=== PATIENT | female | born 1950 | race Caucasian/White ===

== ENCOUNTER 2022-12-15 11:33 | Outpatient (AMB) | payer MEDICARE, SELFPAY ==
--- NOTE | 2022-12-15 11:56 | MHC.OFFWIV ---
Intake Vital Signs 12/15/22 12:12 Weight 132 lb BP 130/62 Blood Pressure Location Rt brachial Position Sitting Pulse 62 Pulse Source Pulse Oximeter Temp 98.0 F Temp Source Temporal Artery Scan Pulse Oximetry (%) 98 Intake Visit Reasons: [employer] ?Finger infection Intake Note: pt is here for c/o finger infection, right middle finger nail, cuticle red Patient Tobacco Use Status: Never used Tobacco Allergies No Known Allergies Allergy (Verified 12/15/22 12:37) Medication List - Last Reconciled 12/15/22 by Franklyn Garner MD amlodipine 10 mg PO DAILY levothyroxine 100 mcg PO DAILY losartan 100 mg PO DAILY Do you need a note to return to daycare/school/sports/work: No HPI [employer] ?Finger infection HPI Details [age] year old female presents to the office for a sick visit. Patient has a swelling and pain in the right hand 3rd digit. Symptoms started after a piece of rock scratched her. PFSH Social History Patient Tobacco Use Status: Never used Tobacco Physical Exam Vital Signs: Last Vital Signs Temp 98.0 F 12/15/22 12:12 Pulse 62 12/15/22 12:12 BP 130/62 12/15/22 12:12 Pulse Ox 98 12/15/22 12:12 Extrem Other: Right hand: 3rd digit: Swelling at the pulp space and along the cuticle edge of the nail. Tender to touch. Assessment & Plan Assessment & Plan (1) Paronychia of right middle finger: Code(s): L03.011 - Cellulitis of right finger Plan: Antibiotics called in. Anti-inflammatories to be taken. If symptoms do not improve to follow-up here. Coding Level of Care Code New Pt Level 3 (94960) Diagnoses Paronychia of right middle finger L03.011
[2022-12-15 12:12] VITALS: BP 130/62; PULSE 62; TEMP 36.7; O2SAT 98
== END 2022-12-15 12:52 | disposition home or self-care (01) ==
PROVIDERS: PCP Internal Medicine; Visit Provider Internal Medicine
DX: L03.011 Cellulitis of right finger (principal)
CPT/HCPCS: 99203

== ENCOUNTER 2023-03-20 11:07 | Outpatient (AMB) | payer MEDICARE, SELFPAY ==
--- NOTE | 2023-03-20 13:02 | MHC.OFFWIV ---
Intake Vital Signs 03/20/23 13:05 Weight 136 lb BP 120/60 Blood Pressure Location Lt brachial Position Sitting Pulse 66 Pulse Source Pulse Oximeter Temp 97.4 F Temp Source Temporal Artery Scan Pulse Oximetry (%) 97 Oxygen Delivery Method Room Air Intake Visit Reasons: EP, congestion, cough (masked) Intake Note: pt is here today for congestion cough started thursday Patient Tobacco Use Status: Never used Tobacco Allergies No Known Allergies Allergy (Verified 03/20/23 13:34) Medication List - Last Reconciled 03/20/23 by Franklyn Garner MD amlodipine 10 mg PO DAILY cephalexin 500 mg PO BID levothyroxine 100 mcg PO DAILY losartan 100 mg PO DAILY Do you need a note to return to daycare/school/sports/work: No HPI EP, congestion, cough (masked) HPI Details Patient presents for a sick visit. Reporting symptoms of sinus congestion, sore throat and difficulty swallowing. Low-grade fever. No family member is sick. No recent travel. Patient reports symptoms of malaise and fatigue. PFSH Social History Patient Tobacco Use Status: Never used Tobacco Physical Exam Vital Signs: Last Vital Signs Temp 97.4 F 03/20/23 13:05 Pulse 66 03/20/23 13:05 BP 120/60 03/20/23 13:05 Pulse Ox 97 03/20/23 13:05 Oxygen Delivery Method Room Air 03/20/23 13:05 Const General: cooperative and healthy appearing Nutritional Appearance: well nourished Orientation/consciousness: patient oriented x3 Limitations: no limitations HEENT Head: Yes normal to inspection Eyes General: appearance normal, both eyes and all related structures Neck Neck: Yes normal visual inspection Chest Chest palpation & inspection: normal palpation of entire chest wall Resp Effort & Inspection: normal respiratory effort Neuro General: patient oriented x3 Assessment & Plan Assessment & Plan (1) Upper respiratory tract infection: Code(s): J06.9 - Acute upper respiratory infection, unspecified Plan: Viral illness. No antibiotics needed. Fence to not improved to follow-up here. Coding Level of Care Code Est Pt Level 3 (94446) Diagnoses Upper respiratory tract infection J06.9
[2023-03-20 13:05] VITALS: BP 120/60; PULSE 66; TEMP 36.3; O2SAT 97
== END 2023-03-20 13:58 | disposition home or self-care (01) ==
PROVIDERS: PCP Internal Medicine; Visit Provider Internal Medicine
DX: J06.9 Acute upper respiratory infection, unspecified (principal)
CPT/HCPCS: 99213